=== PATIENT | female | born 1965 | race Caucasian/White ===

== ENCOUNTER 2021-01-12 16:23 | Emergency (ER) | payer OTHER, SELFPAY ==
[2021-01-12 16:28] VITALS: BP 144/74; PULSE 65; RESP 16; TEMP 36.3; O2SAT 97
--- NOTE | 2021-01-12 16:57 | ED.GENADUL_ITS ---
Discharge Plan Disposition Patient Disposition: HOME Condition: Good Discharge Details Clinical Impression: Contusion of head, Concussion Primary Care Provider: [facility] Provider: [facility] Segundo Home Meds and New Rx's Prescriptions: Continued dextroamphetamine-amphetamine [Adderall] 10 mg Tablet 10 mg PO BID RF: 0 Discharge Instructions Instructions: Concussion (ED), Contusion in Adults (ED) Additional Instructions: Your exam is very reassuring. Do not see any evidence to suggest intracranial bleeding or fracture. I am concerned however that you may have suffered a mild concussion. I would like for you encourage brain rest including avoidance of screens, significant physical exertion. Please stay well-hydrated. Please continue to ice the area to help with your discomfort. Please follow-up with your primary care in 1 week for reevaluation. If you develop fever/chills, visual changes, vomiting, weakness or other new/worsening symptoms seek care urgently once again. Discharge Data Discharge Date/Time-TO BE ENTERED AT DEPARTURE: 01/12/21 17:09 Medical Decision Making Patient is a pleasant 55-year-old female, accompanied by her , with chief complaint of head injury. She reports a prior to arrival she was closing the trunk on her small car and forgot the bike rack was attached. States that she accidentally struck her self with the bar of the bike rack along the right top side of the head. Denies any loss of consciousness. No nausea or vomiting. Denies any visual change. No weakness. Was concerned that there was a bump and that her skull was deformed. However, patient does note that since applying ice this bump has subsided. No break in the skin. Denies other injury the time of the incident. On exam, patient appears nontoxic. She is holding ice to the right Side of her head. I did not appreciate any continued swelling. No break in the skin. No discoloration. She has no midline cervical tenderness, full range of motion. Her neurological exam is intact. Patient did take NSAID earlier today, will augment this with Tylenol for her current discomfort. Patient I discussed risk and benefits of imaging. At this time, I do not feel that she is high risk for any intracranial hemorrhage or significant head trauma. I did advise that she may have a mild concussion. Encourage hydration. Encourage brain rest. Patient also discusses a very large amount of stress that she is currently dealing with that is been increasing her frequency of headaches at baseline as well fatigue. I did encourage more self-care and improved sleep hygiene. Return precautions were discussed. Advised that she follow-up with primary care in 1 week for reevaluation. Patient is from [place] does receive routine healthcare there. All of her questions and concerns were addressed and she is agreement this plan. HPI General Mode of arrival: ambulatory . Date/Time Provider Initiated Documentation: 01/12/21 16:24 . Limitations to Documentation: no limitations . Information obtained by: patient, family () and RN notes reviewed . History of Present Illness 55 year old F presents to the emergency department with the chief complaint of head injury, described as moderate, with intensity rated at 4. Quality is described as aching, and is localized to the head. Patient reports no radiation. Patient started experiencing this minute(s) and it has been constant. other things that improve symptom(s), (ice) No exacerbating factors reported . Patient notes no other symptoms.. Patient did receive the following treatments prior to arrival, NSAID (has this prior ot injury) and other (ice) Related Data Home Medications Medication Instructions Recorded Confirmed dextroamphetamine-amphetamine 10 mg PO BID 01/12/21 01/12/21 [Adderall] Allergies Allergy/AdvReac Type Severity Reaction Status Date / Time levofloxacin [From Levaquin] Allergy Severe Hives Unverified 01/12/21 16:32 Sulfa (Sulfonamide AdvReac Unknown Unverified 01/12/21 16:32 Antibiotics) General Stated Complaint: HeadInjury MARLIN: 3 Review of Systems Constitutional Constitutional: Reports as per HPI, Denies chills, Reports fatigue (states she has been very stressed recently, not sleeping much), Denies fever(s), Reports headache(s) and Denies weakness Eyes Eyes: Reports as per HPI, Denies blurry vision and Denies change in vision ENT Ears, Nose, Mouth, and Throat: Denies vertigo, Reports headache(s) and Denies neck pain Cardiovascular Cardiovascular: Reports as per HPI, Denies chest pain, Denies lightheadedness, Denies dyspnea and Denies dyspnea on exertion Respiratory Respiratory: Reports as per HPI, Denies cough, Denies dyspnea and Denies dyspnea on exertion Gastrointestinal Gastrointestinal: Reports as per HPI, Denies abdominal pain, Denies change in bowel habits, Denies nausea and Denies vomiting Musculoskeletal Musculoskeletal: Reports as per HPI, Denies back pain, Denies myalgias, Denies muscle cramps, Denies neck pain and Denies numbness Integumentary/Breasts Skin/Breast: Reports as per HPI and Denies rash Neurologic Neurologic: Reports as per HPI, Denies abnormal movements, Denies abnormal speech, Denies behavioral changes, Denies confusion, Denies vertigo, Reports headache(s), Denies localized weakness, Denies numbness, Denies sensory deficit and Denies weakness Psychiatric Psychiatric: Denies behavioral changes and Denies confusion Endocrine Endocrine: Reports fatigue (states she has been very stressed recently, not sleeping much) [facility] Social History Smoking/Tobacco Use Status: Former Tobacco Use Quit Date: 06/27/86 Smoking risk assessment performed?: Yes Alcohol Intake: current Alcohol Intake frequency: holidays/special occasions o nly Substance use type: does not use Do you feel safe at home: Yes Do you feel safe in your relationship?: Yes Exam Const General: cooperative, healthy appearing, uncomfortable, no acute distress, well developed, well groomed and anxious Nutritional Appearance: average body habitus and well nourished Orientation: alert, awake and oriented x3 HENMT Head: normal to inspection, no palpable skull fracture, normocephalic, atraumatic, no Goddard's sign, no contusions, no hematomas, no lacerations, no palpable skull fracture, no raccoon eyes, no scalp lesions and scalp tenderness (along right side of superior scalp, no palpable defect or break in the skin) Ears: hearing grossly normal bilaterally, external ears normal and TM's normal bilaterally General nose exam: external nose normal Mouth: oral mucosae normal and moist mucous membranes Throat: posterior oropharynx normal Eyes General: appearance normal, both eyes and all related structures Alignment and Position: alignment normal Periorbital: periorbital findings normal Eyelids: eyelids normal Sclera: sclerae normal Cornea: corneas normal Pupils: PERRL EOM: EOM intact bilaterally Neck Neck: normal visual inspection and full ROM Resp Effort & Inspection: normal respiratory effort, able to speak in complete sentences and no respiratory distress Auscultation: clear to auscultation bilaterally, no rales, no rhonchi and no wheezes Cardio Rate: regular rate Rhythm: regular rhythm Heart Sounds: S1 normal and S2 normal Back/Spine/Pelvis Cervical Spine: normal cervical lordosis, cervical ROM normal, No cervical muscular tenderness, No cervical spinal tenderness and No step off deformity Thoracic/Lumbar Spine: thoracic and lumbar spine normal to inspection Skin General skin exam: no rashes or lesions noted Neuro General: patient alert, patient awake and patient oriented x3 Cranial Nerves: CN's II-XI intact bilaterally Cognition: normal cognition Speech: speech normal Gait: normal gait Motor: muscle tone normal throughout, strength 5/5 throughout, no pronator drift, no movement abnormalities noted and no fasciculations Sensory Exam: no sensory deficits noted Coordination: [id number] test normal, [id number]-[id number] test normal, Romberg test normal, tandem gait normal and Does not sway with eyes open Extrem General: normal to inspection, capillary refill normal, no pedal edema and no calf tenderness Psych Appearance: grossly normal and well kempt Mental Status: mental status grossly normal Speech and Movement: speech and movement normal Course Vital Signs Vital signs: Vital Signs Temperature 36.3 C L 01/12/21 16:28 Pulse 65 01/12/21 16:28 Respiratory Rate 16 01/12/21 16:28 Blood Pressure 144/74 H 01/12/21 16:28 Pulse Oximetry 97 01/12/21 16:28 Temperature 36.3 C L 01/12/21 16:28 Temperature Source Skin 01/12/21 16:28 Pulse 65 01/12/21 16:28 Respiratory Rate 16 01/12/21 16:28 Respiratory Effort 01/12/21 16:36 Respiratory Depth Normal 01/12/21 16:36 Respiratory Pattern Normal 01/12/21 16:36 Blood Pressure 144/74 H 01/12/21 16:28 Pulse Oximetry 97 01/12/21 16:28 Oxygen Delivery Method Room Air 01/12/21 16:28 Oxygen Flow Rate 0 01/12/21 16:28 Pain Level 4 01/12/21 16:28
[2021-01-12] MEDS: Acetaminophen 325 MG TAB 650 MG PO (17:03)
== END 2021-01-12 17:09 | disposition home or self-care (01) ==
LOC: ER 17:18
PROVIDERS: Emergency Provider Physician Assistant
DX: S00.83XA Contusion of other part of head, initial encounter (principal); S06.0X0A Concussion without loss of consciousness, initial encounter; W22.8XXA Striking against or struck by other objects, initial encounter
CPT/HCPCS: 99282; 99283